=== PATIENT | female | born 1990 | race Caucasian/White ===

== ENCOUNTER 2017-05-01 16:55 | Emergency (ER) | payer BC ==
[2017-05-01] MEDS ORDERED: CIPROFLOXACIN HCL/DEXAMETHASONE OTIC SUSP OT ONE (18:18)
--- NOTE | 2017-05-01 18:18 | Emergency Department Record ---
History of Present Illness - General Chief complaint: ENT Stated complaint: RT EAR PAIN Time Seen by Provider: 05/01/17 18:04 Source: Patient Mode of Arrival: Ambulatory Limitations: No limitations - History of Present Illness Initial comments: The patient is here due to R ear pain for 5 days. She was seen at an and was started on oral Abx's and Cortisporin. She then did see her PCP 2 days ago and was changed to Augmentin orally and Clotrimazole ear drops. Now since that visit she has gotten much worse with more pain to the ear. She denies any fever , headache, neck pain or vomiting. The patient does have an ENT appointment in 3 weeks. MD complaint: Ear pain Onset/Timin -: Days(s) Location: R ear Severity: Severe Severity scale (1-10): 10 Quality: Sharp, Other Consistency: Constant Improves with: None Worsens with: None Associated Symptoms: Discharge from ear - Related Data Home Medications Medication Instructions Recorded Confirmed Last Taken Amoxicillin/Potassium Clav 875 mg PO BID 05/01/17 05/01/17 05/01/17 [Augmentin 875Mg/125Mg] Clotrimazole 30 ml TP ASDIR 05/01/17 05/01/17 05/01/17 Levonorgestrel-Ethin Estradiol 1 tab PO DAILY 05/01/17 05/01/17 05/01/17 [Lutera-28 Tablet] Previous Rx's Medication Instructions Recorded Hydrocodone/Acetaminophen [Mid[place] 1 - 2 each PO QID #20 tablet 05/01/17 5-325 Tablet] Allergies Allergy/AdvReac Type Severity Reaction Status Date / Time No Known Drug Allergies Allergy Verified 05/01/17 17:10 Travel Screening - Travel/Exposure Within Last 30 Days Have you traveled within the last 30 days?: No - Travel/Exposure Within Last Year Have you traveled outside the [place] in the last year?: No - Additonal Travel Details Have you been exposed to anyone with a communicable illness?: No - Travel Symptoms Symptom Screening: None Review of Systems Constitutional: Denies: Chills, Fever, Other ENT: Reports: Ear pain, Hearing loss Respiratory: Denies: Cough Past Medical History - SOCIAL HISTORY Smoking Status: Former smoker Alcohol Use: Rare Drug Use: None - RESPIRATORY Hx Respiratory Disorders: No - CARDIOVASCULAR Hx Cardio Disorders: No - NEURO Hx Neuro Disorders: No - GI Hx GI Disorders: No - Hx Genitourinary Disorders: Yes Hx UTI: Yes (hx) - ENDOCRINE Hx Endocrine Disorders: No - MUSCULOSKELETAL Hx Musculoskeletal Disorders: No - PSYCH Hx Psych Problems: No - HEMATOLOGY/ONCOLOGY Hx Hematology/Oncology Disorders: No Family Medical History Any Significant Family History?: Yes Hx Cancer: Grandparents Hx Diabetes: Grandparents Physical Exam - General General Appearance: Alert, Oriented x3, Cooperative, No acute distress - Head Head exam: Atraumatic, Normocephalic, Normal inspection - Eye Eye exam: Normal appearance, PERRL, EOMI - ENT ENT exam: Normal external ear exam, Other (There is significant pain with palpating the R tragus and pulling on the R pinnae. There is no mastoid tenderness or swelling or erythema.). negative: Normal exam, TM's normal bilaterally (THe R Tm is not visualized due to R ear canal edema.) Throat exam: Normal inspection. negative: Tonsillar erythema, Tonsillar exudate - Neck Neck exam: Normal inspection, Full ROM. negative: Lymphadenopathy, Meningismus , Tenderness - Respiratory Respiratory exam: Normal lung sounds bilaterally. negative: Respiratory distress Course Vital Signs 05/01/17 17:16 Temperature 99 F Pulse Rate 92 H Respiratory 18 Rate Blood Pressure 150/100 Pulse Ox 99 - Reevaluation(s) Reevaluation #1: I did discuss with the patient that it appears she has a very extensive external otitis and we will place a wick in the ear canal. We also will change the patient's ear drops to Ciprodex. 05/01/17 18:17 Reevaluation #2: The patient will keep the R wick in place for 3.5 days. She is to have it removed on Friday. If not better in 2 days she will need to be re-evaluated. 05/01/17 18:28 Disposition Disposition: Discharge Clinical Impression: Otitis externa Qualifiers: Otitis externa type: unspecified type Chronicity: acute Laterality: right Qualified Code(s): H60.501 - Unspecified acute noninfective otitis externa, right ear Disposition: Home, Self-Care Condition: (1) Good Instructions: Otitis Externa (ED) Additional Instructions: Please continue the Augmentin as directed and use the Ciprodex 4 drops twice a day for 7 days. Use the Midland if needed. Please return to the ER if not better in 2 days and have the wick removed from the R ear Friday morning. Prescriptions: Hydrocodone/Acetaminophen [[place] 5-325 Tablet] 1 - 2 each PO QID #20 tablet Forms: Patient Portal Access Time of Disposition: 18:33 Quality - Blood Pressure Screening Does Patient Have Any of the Following: No Blood Pressure Classification: Hypertensive Reading Systolic Measurement: 150 Diastolic Measurement: 100
[2017-05-01] MEDS: HYDROCODONE/APAP 5/325MG TABLET PO ONE (18:24)
[2017-05-01] MEDS ORDERED: CIPROFLOXACIN HCL/DEXAMETHASONE OTIC SUSP OT SCH (22:00)
== END 2017-05-01 18:40 | disposition home or self-care (01) ==
LOC: ER 16:55
DX: H60.501 Unspecified acute noninfective otitis externa, right ear (principal); Z87.891 Personal history of nicotine dependence
CPT/HCPCS: 99283